=== PATIENT | male | born 1990 | race Caucasian/White ===

== ENCOUNTER 2018-12-19 14:04 | Emergency (ER) | payer BC ==
[~2018-12-19] VITALS: Ht 172.7 cm; Wt 81.6 kg
--- NOTE | 2018-12-19 14:14 | NUR ---
Patient to ER bed 08 to gown for evaluation. Side rails up.
--- NOTE | 2018-12-19 14:18 | NUR ---
pt reports having intermittent CP for one week. States that he has had CP today since the am. Pt does report having a hx of anxiety.
--- NOTE | 2018-12-19 14:20 | NUR ---
ER at bedside examining patient.
[2018-12-19 14:27] VITALS: BP_SYST 125
[2018-12-19 15:11] VITALS: BP_SYST 132
--- NOTE | 2018-12-19 15:19 | NUR ---
Patient given written and verbal discharge instructions and verbalizes understanding. ER MD discussed with patient the results and treatment provided. Patient in stable condition. ID arm band removed. no Rx given. Patient educated on pain management and to follow up with PMD. Pain Scale 0. Opportunity for questions provided and answered. Medication side effect fact sheet provided.
== END 2018-12-19 15:19 | disposition home or self-care (01) ==
LOC: SED 14:04
DX: R07.89 Other chest pain (principal); F17.290 Nicotine dependence, other tobacco product, uncomplicated; Z71.6 Tobacco abuse counseling
CPT/HCPCS: 71045; 99283

== ENCOUNTER 2019-11-06 18:30 | Emergency (ER) | payer BC ==
[~2019-11-06] VITALS: Ht 170.2 cm; Wt 68.0 kg
[2019-11-06 18:36] VITALS: BP_SYST 131
[2019-11-06 19:09] VITALS: BP_SYST 128
== END 2019-11-06 19:05 | disposition home or self-care (01) ==
LOC: SED 18:30
DX: R07.89 Other chest pain (principal)
CPT/HCPCS: 93005; 99283

== ENCOUNTER 2020-07-30 10:38 | Emergency (ER) | payer SELFPAY ==
[~2020-07-30] VITALS: Ht 175.3 cm; Wt 72.6 kg
[2020-07-30 10:46] VITALS: BP_SYST 108
[2020-07-30 11:22] LABS: BASOPHILS # (AUTO) 0.1 K/uL (0.0-0.2); BASOPHILS % (AUTO) 0.9 % (0.0-2.0); EOSINOPHILS % (AUTO) 0.6 % (0.0-4.0); HEMATOCRIT 46.3 % (36-54); HEMOGLOBIN 15.6 g/dL (14.0-18.0); LYMPHOCYTES # (AUTO) 2.2 K/uL (1.0-5.5); LYMPHOCYTES % (AUTO) 29.7 % (20.5-51.5); MEAN CORPUSCULAR HEMOGLOBIN 30 pg (27-31); MEAN CORPUSCULAR HGB CONC 34 % (32-36); MEAN CORPUSCULAR VOLUME 89 fL (79.0-98.0); MONOCYTES # (AUTO) 0.4 K/uL (0.0-1.0); MONOCYTES % (AUTO) 5.8 % (1.7-9.3); NEUTROPHILS # (AUTO) 4.6 K/uL (1.8-7.7); PLATELET COUNT (AUTO) 297 K/uL (130-430); RED BLOOD CELL COUNT(AUTO) 5.22 MIL/uL (4.2-6.2); RED CELL DISTRIBUTION WIDTH 13.2 % (9.0-15.0); WHITE BLOOD COUNT (AUTO) 7.4 K/uL (4.8-10.8)
[2020-07-30 11:35] LABS: ANION GAP 11 (5-15); CALCIUM 9.1 mg/dL (8.4-11.0); CHLORIDE 107 mmol/L (98-107); GLUCOSE 102 mg/dL (70-99); POTASSIUM 3.8 mmol/L (3.5-5.1); SODIUM SERUM 143 mmol/L (136-145); UREA NITROGEN, BLOOD 11 mg/dL (8-21)
[2020-07-30 11:36] LABS: GFR AFRICAN AMERICAN 91 mL/min (>90)
[2020-07-30 11:42] LABS: ALANINE AMINOTRANSFERASE 64 U/L (12-78); ALBUMIN 4.2 g/dL (3.4-4.8); ASPARTATE AMINOTRANSFERASE 34 U/L (10-37); TOTAL BILIRUBIN 0.3 mg/dL (0.0-1.0)
[2020-07-30 11:45] LABS: ACETAMINOPHEN < 1 ug/mL (1-30)
[2020-07-30] MEDS ORDERED: NACL 0.9% 2,000 ML IV ONE (11:45)
[2020-07-30 12:00] LABS: ALCOHOL, BLOOD 322 mg/dL (<10)
[2020-07-30 12:02] LABS: CHOLESTEROL 235 mg/dL (<200); HDL CHOLESTEROL 62 mg/dL (>45); LDL CHOLESTEROL 153 mg/dL (<100); TRIGLYCERIDES 154 mg/dL (30-150)
[2020-07-30 12:16] LABS: BILIRUBIN,URINE NEGATIVE (NEGATIVE); BLOOD, URINE NEGATIVE (NEGATIVE); CLARITY/URINE CLEAR (CLEAR); COLOR,URINE YELLOW (YELLOW); GLUCOSE,URINE NEGATIVE (NEGATIVE); KETONES,URINE NEGATIVE (NEGATIVE); LEUKOCYTE ESTERASE ,URINE NEGATIVE (NEGATIVE); NITRITE, URINE NEGATIVE (NEGATIVE); PROTEIN URINE NEGATIVE (NEGATIVE); UROBILINOGEN,URINE 0.2 (0.2-1.0)
[2020-07-30 12:30] LABS: BARBITURATE, URINE NEGATIVE (NEG <=200); BENZODIAZEPINE, URINE NEGATIVE (NEG <=150); CANNABINOID, URINE NEGATIVE (NEG <=50); COCAINE, URINE NEGATIVE (NEG <=150); METHAMPHETAMINES SCREEN,URINE NEGATIVE (NEG <=500); OPIATE, URINE NEGATIVE (NEG <=100); PHENCYCLIDINE SCREEN,URINE NEGATIVE (NEG <=25); URINE AMPHETAMINE NEGATIVE (NEG <=500); URINE METHADONE NEGATIVE (NEG <=200)
[2020-07-30 12:31] LABS: UR TRICYCLIC ANTIDEPRESSANTS NEGATIVE (NEG <=300); URINE OXYCODONE SCREEN NEGATIVE (NEG <=100); URINE PROPOXYPHENE SCREEN NEGATIVE (NEG <=300)
[2020-07-30] MEDS ORDERED: NALOXONE HCL 2 MG/2 ML SYR IVP ONE (12:45)
[2020-07-30 14:01] VITALS: BP_SYST 106
== END 2020-07-30 14:02 ==
LOC: SED 10:38
DX: F10.129 Alcohol abuse with intoxication, unspecified (principal); Z20.822 Contact with and (suspected) exposure to COVID-19
CPT/HCPCS: 36415; 70450; 71045; 76376; 80053; 80061; 80307; 81003; 83036; 85025; 87426; 96361; 96374; 99285; G0480; G0481; G0482; J2310; J7030